=== PATIENT | female | born 1975 | race Caucasian/White ===

== ENCOUNTER 2024-09-19 20:12 | Emergency (ER) | payer OTHER, SELFPAY ==
[2024-09-19 20:15] VITALS: BMI 25.7
[2024-09-19 20:33] VITALS: BP 112/72; PULSE 97; RESP 18; TEMP 37.3; O2SAT 95
--- NOTE | 2024-09-19 21:15 | EDRME_ITS ---
Rapid Medical Screening Exam [facility] Arrival date/time: 09/19/24 20:12 49F with history of [place]'s disease presents to ED with several days of cough and sore throat. Patient also thinks it triggered her [place]'s disease due to generalized weakness and pain. Patient already took 60 mg of hydrocortisone today. Chief Complaint: Weakness Vital signs: Vital Signs Temperature 99.1 F 09/19/24 20:33 Pulse Rate 97 09/19/24 20:33 Respiratory Rate 18 09/19/24 20:33 Blood Pressure 112/72 09/19/24 20:33 Pulse Oximetry (%) 95 09/19/24 20:33 Oxygen Delivery Method Room Air 09/19/24 20:33
[2024-09-19 22:03] LABS: Collection Type, Urine Clean Catch
[2024-09-19 22:09] LABS: Bilirubin,Urine Negative (Negative); Blood,Urine Negative (Negative); Clarity,Urine Clear (Clear/Hazy); Color,Urine Yellow (Lt Yel-Yel); Culture Indicated,Urine Not Indicated; Glucose, Urine Negative (Negative); Ketones,Urine Negative (Negative); Leukocyte Esterase,Urine Negative (Negative); Nitrite,Urine Negative (Negative); PH,Urine 6.5 (5.0-7.0); Protein,Urine Negative (Neg - Trace); RBC,Urine 3 /hpf (0-3); Specific Gravity,Urine 1.024 (1.001-1.035); Squamous Epithelial Cell,Urine < 1 /hpf (0-5); Urobilinogen,Urine Negative mg/dL (0.0-1.0); WBC,Urine < 1 /hpf (0-5)
[2024-09-19 22:16] LABS: HCG Qualitative,Urine Negative
[2024-09-19 22:17] LABS: Amphetamine/Methamp Scrn,U Negative (Negative); Barbiturate Screen,Urine Negative (Negative); Benzodiazepines Screen,Urine Negative (Negative); Benzoylecgonine Screen, Ur Negative (Negative); Fentanyl Screen,Urine Negative (Negative); Opiate Screen,Urine Negative (Negative); THC Screen,Urine Negative (Negative)
[2024-09-19 22:50] VITALS: BP 114/69; PULSE 76; RESP 19; TEMP 36.6; O2SAT 96
[2024-09-19 23:03] LABS: Lactate (Lactic Acid) 0.6 mMol/L (0.4-2.0)
[2024-09-19] MEDS: HYDROCORTISONE SOD SUCC INJ 100 MG VIAL 50 MG IV (23:03)
[2024-09-19] MEDS: SODIUM CHLORIDE 0.9% 1000 ML 1,000 ML 999 ML IV (23:03)
[2024-09-19 23:06] LABS: Basophils % (Auto) 0 % (0-2.5); Eosinophils % (Auto) 0 % (0-10); Hemoglobin 13.5 g/dL (12.0-16.0); Immature Granulocytes % (Auto) 0 % (0-0); Immature Granulocytes Auto 0.04 Thou/mm3 (0.00-0.00); Lymphocytes # (Auto) 1.2 Thou/mm3 (1.0-4.8); Lymphocytes % (Auto) 9 % (10-50); Mean Corpuscular HGB Conc 34.6 g/dl (31.0-37.0); Mean Corpuscular Hemoglobin 28.8 pg (25.0-35.0); Mean Corpuscular Volume 83 fL (80-100); Monocytes # (Auto) 0.4 Thou/mm3 (0.0-0.8); Monocytes % (Auto) 3 % (0-12); Neutrophils # (Auto) 11.5 Thou/mm3 (1.8-7.7); Neutrophils % (Auto) 87 % (37-80); Nucleated Red Blood Cell % 0 /100 WBC (0); Platelet Count 276 Thou/mm3 (140-440); RDW Standard Deviation 46.2 fL (36.4-46.3); Red Blood Count 4.69 Miln/mm3 (4.00-5.20); White Blood Count 13.1 Thou/mm3 (3.6-11.0)
[2024-09-19 23:16] LABS: Strep A Rapid Negative (Negative)
--- NOTE | 2024-09-19 23:22 | PD.EDWEAK ---
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 Patient also thinks it triggered her Maninder's disease due to generalized weakness and pain. Patient already took 60 mg of hydrocortisone today. Dr. Mckenzie?s Main ED Evaluation: 49yo female with a history of [place]'s disease presents to the ED for a chief complaint of a sore throat x 1-2 days. Patient reports associated generalized weakness. Patient states she missed her dose of hydrocortisone today, but doubled on it, stating she now feels better. Patient denies any fever, chills, nausea, vomiting or any other associated symptoms. Related Data Previous Rx's ?Medication ?Instructions ?Recorded oseltamivir 6 mg/mL oral 75 mg (12.5 mL) PO BID 5 days #125 09/20/24 suspension (Tamiflu) mL oseltamivir 6 mg/mL oral 75 mg (12.5 mL) PO BID 5 days #125 09/20/24 suspension (Tamiflu) mL Allergies Allergy/AdvReac Type Severity Reaction Status Date / Time blue dye Allergy Anaphylaxis Verified 09/19/24 20:15 capsaicin Allergy Anaphylaxis Verified 09/19/24 20:15 morphine Allergy Hives Verified 09/19/24 20:15 prednisone Allergy Hives Verified 09/19/24 20:15 yellow dye Allergy Anaphylaxis Verified 09/19/24 20:15 GREEN DRY Allergy Anaphylaxis Uncoded 09/19/24 20:15 Review of Systems Review of Systems Systems Reviewed: All systems reviewed, normal except as documented Past Medical History Past Medical History CARDIAC: Negative Congestive Heart Failure RESPIRATORY: Negative Chronic Obstructive Pulmonary Disease (COPD) GENITOURINARY: Negative Renal Disease ENDOCRINE: Negative Diabetes Mellitus Type 1 or Diabetes Mellitus Type 2 Social History SMOKING STATUS: Former smoker ED Exam Narrative Physical exam: GENERAL APPEARANCE: alert and oriented x 4, well-developed, well-nourished, no acute distress VITALS: All vitals were reviewed and the pulse ox is 96% on room air, which is normal according to my interpretation. HEENT: Normocephalic, atraumatic; pupils equal, round, reactive to light; EOMI; mucous membranes pink, moist; oropharynx clear NECK: Supple LUNGS: CTABL; no wheezes, no rales, no rhonchi HEART: Regular rate, regular rhythm; normal S1, S2; no murmurs ABDOMEN: non distended; normal BS; soft, no tenderness, no guarding, no rebound; no masses, no organomegaly, no hernia BACK: no CVA tenderness EXTREMITIES: atraumatic; no edema NEUROLOGIC: awake; alert and oriented x4; cranial nerves II-XII grossly intact; no focal sensory or motor deficits PSYCHIATRIC: appropriate mood and affect SKIN: warm, dry, normal color; no rashes Course Quality Measures none Orders Category Date Time Status Bedside COVID-19 Antigen Test NOW Care 09/19/24 21:12 Active Bedside Influenza A&B Antigen Test NOW Care 09/19/24 21:14 Completed Insert IV NOW Care 09/19/24 21:12 Active CBC Stat Lab 09/19/24 23:00 Completed CMP [Comprehensive Metabolic Panel] Stat Lab 09/19/24 23:00 Completed Drug Screen,Urine Stat Lab 09/19/24 21:20 Completed HCG Qualitative,Urine Stat Lab 09/19/24 21:20 Completed Lactate (Lactic Acid) Stat Lab 09/19/24 23:00 Completed Procalcitonin Stat Lab 09/19/24 23:00 Completed Strep A Rapid Stat Lab 09/19/24 22:56 Completed Urinalysis, C/S if Indicated Stat Lab 09/19/24 21:20 Completed Hydrocortisone Sod Succ Inj [SoluCORTEF Inj] Med 09/19/24 21:12 Discontinued 50 mg IV X1 ONE Sodium Chloride 0.9% 1000 ml [Ns] 1,000 ml Med 09/19/24 21:12 Discontinued IV 999 mls/hr Vital Signs Vital signs: Vital Signs Temperature 99.1 F 09/19/24 20:33 Pulse Rate 97 09/19/24 20:33 Respiratory Rate 18 09/19/24 20:33 Blood Pressure 112/72 09/19/24 20:33 Pulse Oximetry (%) 95 09/19/24 20:33 Oxygen Delivery Method Room Air 09/19/24 20:33 Weakness MDM Narrative MDM Narrative:: Scribe Attestation: 09/19/24 - I, Shaye Margarito, am scribing for and in the presence of Dr. Mckenzie. Patient data External records reviewed:: [facility] previous records (Per chart review, patient has no previous ED visits or admissions to this facility.) Clinical information provided by:: patient Social determinants that could affect healthcare access:: none Patient has the following chronic illnesses:: none How is presenting disease/condition affected by chronic disease/condition?: no chronic disease Evaluation data The following diagnostics were reviewed and interpreted by me:: lab results Lab and/or radiology exams considered but not ordered:: none Interpretation Summary: WBC count 13.1, UA unremarkable, UDS negative, Strep negative, Bedside Influenza A positive. Medications / Prescriptions Medications or Prescriptions considered but not ordered:: none Medication administrations:: Medication Administration History Discontinued Medications Hydrocortisone Sodium Succinate (Hydrocortisone Sod Succ Inj 100 Mg Vial) 50 mg IV X1 ONE Stop: 09/19/24 21:13 Last Admin: 09/19/24 23:03 Dose: 50 mg Documented By: GARETH Sodium Chloride (Ns) 1,000 mls @ 999 mls/hr IV .Q1H1M ONE Stop: 09/19/24 22:12 Last Admin: 09/19/24 23:03 Dose: 999 mls/hr Documented By: GARETH see above Consultations Consultation(s) initiated? (list below): No Diagnosis Weakness Differential Diagnosis: other (hypoadrenalism, hyponatremia, hyperkalemia, hypomagnesemia, Influenza) Most likely diagnosis given after review of the tests above:: see clinical impression below Admission Indicated Admission indicated?: not indicated Explain why admission is indicated or not indicated:: With no severe illness, there is no indication for admission. Admission Request Was there a request for admission?: No Disposition Plan Disposition Plan: Discharge Discharge Attestation Discharge Attestation: The patient and all family members were given an opportunity to ask questions and understood the discharge instructions. Discharge instructions specifically effects, indications for sooner follow up or return to the emergency department, and the expected course of current diagnosis. Patient condition: Stable Discharge Plan Plan Patient Disposition: HOME (Self Care) Discharge Disposition comment: Stable for discharge home Patient condition on transfer: Stable Prescriptions/Referrals Prescriptions/Med Rec: New oseltamivir [Tamiflu] 6 mg/mL suspension for reconstitution 75 mg PO BID 5 Days Qty: 125 0RF oseltamivir [Tamiflu] 6 mg/mL suspension for reconstitution 75 mg PO BID 5 Days Qty: 125 0RF Referrals: [facility] [Provider Group] - In 1 week Problem List Clinical Impression: Influenza A Patient/Caregiver Discharge Instructions Discharge Activity: activity as tolerated Education Materials: The Flu (Influenza), ED Influenza (Adult) Additional Instructions: Please return to the emergency department if you have any worsening or any further medical problems and we will help you. Otherwise you should follow-up with your primary care doctor or in the [facility] within the next several days Print Language: Khmer Stand Alone Forms: [facility]ia Award Info., Patient Portal Info Letter
[2024-09-19 23:54] LABS: Alanine Aminotransferase 36 U/L (10-49); Albumin, Serum 4.5 gm/dL (3.5-5.0); Albumin/Globulin Ratio 2.4 (1.2-2.2); Alkaline Phosphatase 197 U/L (46-116); Anion Gap 13 (7-16); Aspartate Amino Transferase 37 U/L (0-34); BUN/Creatinine Ratio 18 Ratio (12-20); Bilirubin,Total 0.6 mg/dL (0.3-1.2); Blood Urea Nitrogen 11 mg/dL (9-23); Calcium 9.1 mg/dL (8.3-10.6); Calcium (Corrected) 9.1 mg/dL (8.5-10.1); Carbon Dioxide 21.8 mMol/L (20.0-31.0); Chloride 109 mMol/L (98-107); Creatinine (Component) 0.6 mg/dL (0.6-1.3); Estimated Creatinine Clearance 104.5 mL/min (>60); Globulin 1.9 gm/dL (2.3-3.5); Glucose 114 mg/dL (74-106); Osmolality,Calculated 287 (275-295); Potassium 4.3 mMol/L (3.4-5.1); Procalcitonin < 0.04 ng/ml (0.0-0.49); Sodium 144 mMol/L (136-145); Total Protein 6.4 gm/dL (5.7-8.2); eGFR > 60 See Note
== END 2024-09-20 00:27 | disposition home or self-care (01) ==
PROVIDERS: Physician Assistant; Emergency Provider Emergency Medicine
DX: J10.1 Influenza due to other identified influenza virus with other respiratory manifestations (principal); E27.1 Primary adrenocortical insufficiency
CPT/HCPCS: 36415; 80053; 80307; 81001; 81025; 83605; 84145; 85025; 87400; 87651; 87811; 96360; 99284; J1720; J7030